=== PATIENT | male | born 1950 | race Caucasian/White ===

== ENCOUNTER → 2018-03-08 | Outpatient (CLI) | payer OTHER ==
[~2018-03-08] MED LIST: REGADENOSON 0.4 MG/5 ML SYR IV ONE
--- NOTE | 2018-03-09 12:04 | Cardiology Report ---
DATE OF STUDY: March 08, 2018 LEXISCAN NUCLEAR STRESS TEST INDICATIONS: Chest pain. DESCRIPTION OF PROCEDURE: After informed consent, patient was brought to the stress lab. He was given 11 mCi of technetium 99 Myoview, and myocardial perfusion SPECT images obtained in horizontal long and short axis, vertical long axis. Subsequently, patient was given 0.4 mg Lexiscan in 10 seconds. Patient was given 32 mCi of technetium 99 Myoview and myocardial perfusion SPECT images obtained in horizontal long and short axis and vertical long axis. Gating images were also obtained. Patient tolerated the procedure without any complications. Report baseline EKG shows sinus bradycardia at 58 beats per minute, left anterior fascicular block, left bundle branch block, secondary ST-T changes. PARAMETERS 1. Resting heart rate is 56 beats per minute. 2. Maximum heart rate 96 beats per minute. 3. Resting blood pressure 162/59 mmHg. 4. Maximum blood pressure is 174/66 mmHg. REASON FOR TERMINATION: Endpoint attained. INTERPRETATION 1. Negative chest pain. 2. Negative for arrhythmias. 3. Blood pressure response consistent with Lexiscan. 4. No significant ST-T changes seen during Lexiscan infusion compared to baseline. Analysis SPECT images reveals uniform radioisotope uptake in all segments of myocardium without any significant perfusion defects. CONCLUSIONS 1. There is no evidence of significant ischemia or infarction on this study. 2. No wall motion abnormalities. 3. Overall ejection fraction is 54%. Job#: [id number]
== END ==
LOC: NM 06:28
DX: R07.2 Precordial pain (principal); I25.10 Atherosclerotic heart disease of native coronary artery without angina pectoris
CPT/HCPCS: 78452; 93017; A9502